=== PATIENT | female | born 1975 | race African-American/Black ===

== ENCOUNTER 2016-09-26 01:46 | Emergency (ER) | payer MEDICAID, OTHER ==
[~2016-09-26] VITALS: Ht 154.9 cm; Wt 76.0 kg
[~2016-09-26 01:46] MED LIST: ASPI81TA82 PO; IBUP-238 PO
[2016-09-26 01:51] VITALS: BP 148/90; PULSE 70; RESP 16; TEMP 97.7; O2SAT 100
--- NOTE | 2016-09-26 04:40 | PD ---
HPI Chief Complaint: Flank/Kidney Pain Time Seen by Provider: 04:06 Travel History International Travel<30 days: No Contact w/Intl Traveler<30days: No Traveled to known affect area: No History of Present Illness HPI 41-year-old female came to the emergency room with history of right flank pain for past 1 week. Patient says that the pain is not going away and hence she came in to get checked. She has her period on right now. She says her urine smells funny as well. Vital signs were stable. No history of trauma. PFSH Past Medical History Narrative Medical List of her past medical, surgical, social and family history was reviewed from the nursing note. Arthritis: No Asthma: No Autoimmune Disease: No Blood Disorders: No Heart Rhythm Problems: Yes ("PALPITATIONS") Cancer: No Cardiovascular Problems: Yes (HTN, CHF) High Cholesterol: Yes Chemotherapy: No Chest Pain: Yes Congestive Heart Failure: Yes COPD: No Cerebrovascular Accident: No Diminished Hearing: No Endocrine: No Glaucoma: No Genitourinary: No Headaches: No Hepatitis: No Hypertension: Yes Immune Disorder: No Kidney Stones: No Musculoskeletal: No Neurologic: No Psychiatric: No Reproductive: No Respiratory: No Migraines: Yes Myocardial Infarction: No Radiation Therapy: No Seizures: No Sickle Cell Disease: No Sleep Apnea: No Ulcer: Yes ?: Not LMP: CURRENT : 4 Para: 3 : 1 Tubal Ligation: Yes Past Surgical History Abdominal Surgery: No AICD: No Arteriovenous Shunt: No Cardiac Surgery: No Section: Yes (X 3) Ear Surgery: No Endocrine Surgery: No Eye Surgery: No Genitourinary Surgery: No Gynecologic Surgery: Yes (C SECTIONS-TUBAL LIGATION) Insulin Pump: No Joint Replacement: No Oral Surgery: No Pacemaker: No Thoracic Surgery: No Other Surgery: Yes (3 C-SECTIONS) Family History Family Hypercholesterolemia: Yes Social History Alcohol Use: Yes (OCCASSIONAL WINE) Tobacco Use: Yes (BLACK AND MILDS) Substance Use: Yes (OCCASIONAL MARIJUANA) Allergies-Medications (Allergen,Severity, Reaction): Uncoded Allergies: steroids (Allergy, Mild, 09/26/16) Comments List of her allergies reviewed from the nursing note Reported Meds & Prescriptions Reported Meds & Active Scripts Active Tylenol (Acetaminophen) 325 Mg Tab 650 Mg PO Q6H PRN Narrative Medication List of her home medications reviewed from the nursing note. Review of Systems Except as stated in HPI: all other systems reviewed are Neg Physical Exam Narrative GENERAL: Awake, alert, moderate distress SKIN: Focused skin assessment warm/dry. HEAD: Atraumatic. Normocephalic. EYES: Pupils equal and round. No scleral icterus. No injection or drainage. ENT: No nasal bleeding or discharge. Mucous membranes pink and moist. NECK: Trachea midline. No JVD. CARDIOVASCULAR: Regular rate and rhythm. No murmur appreciated. RESPIRATORY: No accessory muscle use. Clear to auscultation. Breath sounds equal bilaterally. GASTROINTESTINAL: Abdomen soft, non-tender, nondistended. Hepatic and splenic margins not palpable. MUSCULOSKELETAL: No obvious deformities. No clubbing. No cyanosis. No edema. NEUROLOGICAL: Awake and alert. No obvious cranial nerve deficits. Motor grossly within normal limits. Normal speech. PSYCHIATRIC: Appropriate mood and affect; insight and judgment normal. Data Data Last Documented VS Vital Signs Date Time Temp Pulse Resp B/P Pulse Ox O2 Delivery O2 Flow Rate FiO2 09/26/16 10:42 84 16 128/76 99 Orders Complete Blood Count With Diff (09/26/16 04:57) Comprehensive Metabolic Panel (09/26/16 04:57) Urinalysis - C+S If Indicated (09/26/16 04:57) Ct Abd/Pel W/O Iv Contrast (09/26/16 04:57) Ecg Monitoring (09/26/16 04:57) Iv Access Insert/Monitor (09/26/16 04:57) Morphine Inj (Morphine Inj) (09/26/16 05:00) Sodium Chloride 0.9% Flush (Ns Flush) (09/26/16 05:00) Sodium Chlor 0.9% 1000 Ml Inj (Ns 1000 M (09/26/16 04:57) Ondansetron Inj (Zofran Inj) (09/26/16 05:00) Ketorolac Inj (Toradol Inj) (09/26/16 05:00) Ondansetron Inj (Zofran Inj) (09/26/16 05:45) Calcium Carbonate Chew (Tums Chew) (09/26/16 07:15) Us Pelvis Comp W Transvaginal (09/26/16 ) Labs Laboratory Tests Test 09/26/16 09/26/16 09/26/16 05:15 05:20 05:57 Urine Color LIGHT-YELLOW Urine Turbidity CLEAR Urine pH 5.5 Urine Specific [place] 1.018 Urine Protein NEG mg/dL Urine Glucose (UA) NEG mg/dL Urine Ketones NEG mg/dL Urine Occult Blood MOD Urine Nitrite NEG Urine Bilirubin NEG Urine Urobilinogen LESS THAN 2.0 MG/DL Urine Leukocyte Esterase NEG Urine RBC 58 /hpf Urine WBC 1 /hpf Microscopic Urinalysis Comment CULT NOT INDICATED White Blood Count 8.1 TH/MM3 Red Blood Count 3.84 MIL/MM3 Hemoglobin 11.2 GM/DL Hematocrit 32.8 % Mean Corpuscular Volume 85.5 FL Mean Corpuscular Hemoglobin 29.2 PG Mean Corpuscular Hemoglobin 34.2 % Concent Red Cell Distribution Width 16.3 % Platelet Count 482 TH/MM3 Mean Platelet Volume 8.6 FL Neutrophils (%) (Auto) 52.7 % Lymphocytes (%) (Auto) 37.6 % Monocytes (%) (Auto) 6.4 % Eosinophils (%) (Auto) 2.2 % Basophils (%) (Auto) 1.1 % Neutrophils # (Auto) 4.3 TH/MM3 Lymphocytes # (Auto) 3.0 TH/MM3 Monocytes # (Auto) 0.5 TH/MM3 Eosinophils # (Auto) 0.2 TH/MM3 Basophils # (Auto) 0.1 TH/MM3 CBC Comment DIFF FINAL Differential Comment Sodium Level 140 MEQ/L Potassium Level 4.0 MEQ/L Chloride Level 108 MEQ/L Carbon Dioxide Level 25.4 MEQ/L Anion Gap 7 MEQ/L Blood Urea Nitrogen 13 MG/DL Creatinine 0.69 MG/DL Estimat Glomerular Filtration 112 ML/MIN Rate Random Glucose 87 MG/DL Calcium Level 7.7 MG/DL Total Bilirubin 0.2 MG/DL Aspartate Amino Transf 16 U/L (AST/SGOT) Alanine Aminotransferase 19 U/L (ALT/SGPT) Alkaline Phosphatase 57 U/L Total Protein 6.4 GM/DL Albumin 3.1 GM/DL [facility] Medical Decision Making Medical Screen Exam Complete: Yes Emergency Medical Condition: Yes Medical Record Reviewed: Yes Differential Diagnosis Renal colic, muscular skeletal pain Narrative Course 7:10 AM blood tests are within acceptable limit. CT scan shows a large fibroid and the radiologist has recommended an ultrasound. Ultrasound has been ordered. Case will be signed over to the oncoming ER physician. Patient was given pain medication. Calcium was slightly low. I'll order PO calcium. Procedures EKG Prior to Arrival: No Scripts Acetaminophen (Tylenol)325 Mg [id number] Mg PO Q6H PRN (PAIN SCALE 1 TO 4) #20 TAB Ref 0 Prov:Diandra Miller DO 09/26/16 Eunice Garcia MD Sep 26, 2016 04:40
[2016-09-26 04:44] VITALS: BP 138/68; PULSE 60; RESP 18; O2SAT 99
[2016-09-26] MEDS ORDERED: SODIUM CHLOR 0.9% 1000 ML INJ 1,000 ML IV ONE (04:57)
[2016-09-26] MEDS ORDERED: MORPHINE SULFATE 4 MG/ML INJ IV ONE (05:00)
[2016-09-26] MEDS ORDERED: ONDANSETRON HCL 4 MG/2 ML VIAL IM ONE (05:00)
[2016-09-26] MEDS ORDERED: SODIUM CHLORIDE 0.9% FLUSH 10 ML FLUSH IVF PRN (05:00)
[2016-09-26] MEDS ORDERED: KETOROLAC TROMETHAMINE 30 MG/ML (IVP) VIAL IV PUSH ONE (05:00)
[2016-09-26 05:40] LABS: AUTOMATED NEUTROPHIL # 4.3 TH/MM3 (1.8-7.7); BASOPHIL # 0.1 TH/MM3 (0-0.2); BASOPHIL % 1.1 % (0.0-2.0); EOSINOPHIL # 0.2 TH/MM3 (0-0.4); EOSINOPHIL % 2.2 % (0.0-4.0); HEMATOCRIT 32.8 % (35.0-46.0); HEMO FLAGS DIFF FINAL; LYMPH % 37.6 % (9.0-44.0); MEAN CELL VOLUME 85.5 FL (80.0-100.0); MEAN CORPUSCULAR HEMOGLOBIN 29.2 PG (27.0-34.0); MEAN CORPUSCULAR HGB CONC 34.2 % (32.0-36.0); MONO % 6.4 % (0.0-8.0); NEUT % 52.7 % (16.0-70.0); PLATELET COUNT 482 TH/MM3 (150-450); RED BLOOD COUNT 3.84 MIL/MM3 (4.00-5.30); RED CELL DISTRIBUTION WIDTH 16.3 % (11.6-17.2); WHITE BLOOD COUNT 8.1 TH/MM3 (4.0-11.0)
[2016-09-26 05:44] LABS: BLOOD, URINE MOD (NEG); COMMENT (UR) CULT NOT INDICATED; CULTURE IF INDICATED CULT NOT INDICATED; GLUCOSE,URINE NEG (NEG); KETONE, URINE NEG (NEG); NITRITE,URINE NEG (NEG); PH, URINE 5.5 (5.0-8.5); URINE COLOR LIGHT-YELLOW (YELLW/STRAW)
[2016-09-26] MEDS ORDERED: ONDANSETRON HCL 4 MG/2 ML VIAL IV PUSH ONE (05:45)
--- NOTE | 2016-09-26 06:14 | RADRPT ---
EXAM DATE/TIME: 09/26/2016 05:45 [facility] COMPARISON: No previous studies available for comparison. INDICATIONS : Flank pain. ORAL CONTRAST: No oral contrast ingested. RADIATION DOSE: 9.96 CTDIvol (mGy) MEDICAL HISTORY : Hypertension. SURGICAL HISTORY : section. Tubal ligation. ENCOUNTER: Initial ACUITY: 2 weeks PAIN SCALE: 8/10 LOCATION: Bilateral flank TECHNIQUE: Volumetric scanning of the abdomen and pelvis was performed. Using automated exposure control and ad justment of the mA and/or kV according to patient size, radiation dose was kept as low as reasonably achievable to obtain optimal diagnostic quality images. DICOM format image data is available electro nically for review and comparison. FINDINGS: LOWER LUNGS: The visualized lower lungs are clear. LIVER: Homogeneous density without lesion. There is no dilation of the biliary tree. No calcified gallston es. SPLEEN: Normal size without lesion. PANCREAS: Within normal limits. KIDNEYS: Normal in size and shape. There is no mass, stone, or hydronephrosis. ADRENAL GLANDS: Within normal limits. VASCULAR: There is no aortic aneurysm. BOWEL/MESENTERY: The stomach, small bowel, and colon demonstrate no acute abnormality. There is no free intraperitone al air or fluid. ABDOMINAL WALL: Within normal limits. RETROPERITONEUM: Small scattered lymph nodes. BLADDER: No wall thickening or mass. REPRODUCTIVE: Mass projecting from the uterus measuring 9.5 x 10.7 cm. INGUINAL: There is no lymphadenopathy or hernia. MUSCULOSKELETAL: Within normal limits for patient age. CONCLUSION: 1. Large mass projecting from the uterus could be related to a exophytic leiomyoma. Confirmation with pelvic sonogram recommended. 2. Small scattered retroperitoneal lymph nodes. 3. No acute inflammatory process. 4. No renal calculi or hydronephrosis. Jean Paul Shannon MD on September 26, 2016 at 6:10 Board Certified Radiologist. This report was verified electronically.
[2016-09-26 06:41] LABS: ANION GAP 7 MEQ/L (5-15); AST (GOT) 16 U/L (15-37); BICARBONATE 25.4 MEQ/L (21.0-32.0); BLOOD UREA NITROGEN 13 MG/DL (7-18); CHLORIDE 108 MEQ/L (98-107); GLOMERULAR FILTRATION RATE 112 ML/MIN (>89); SODIUM (NA) 140 MEQ/L (136-145)
[2016-09-26 06:42] LABS: ALT (GPT) 19 U/L (10-53)
[2016-09-26 06:44] LABS: ALKALINE PHOSPHATASE 57 U/L (45-117); TOTAL BILIRUBIN ADULT 0.2 MG/DL (0.2-1.0)
[2016-09-26] MEDS ORDERED: CALCIUM CARBONATE 500 MG CHEWABLE TAB CHEW ONE (07:15)
--- NOTE | 2016-09-26 08:41 | RADRPT ---
EXAM DATE/TIME: 09/26/2016 07:35 [facility] COMPARISON: CT ABDOMEN & PELVIS W/O CONTRAST, September 26, 2016, 5:45. INDICATIONS : Abnormal Cat Scan. Right flank pain. MEDICAL HISTORY : Congestive heart failure. Hypertension. Hypercholesterolemia. SURGICAL HISTORY : Tubal ligation. section. ENCOUNTER: Initial ACUITY: 1 day PAIN SCORE: 0/10 LOCATION: Bilateral pelvis MEASUREMENTS: TRANSABDOMINAL: UTERUS: 17.2 x 11.6 x 9.3 cm ENDOMETRIAL STRIPE: 5 mm RIGHT OVARY: Non visualized LEFT OVARY: Non visualized UTERUS: 14.9 x 10.4 x 10.5 cm ENDOMETRIAL STRIPE: 9 mm RIGHT OVARY: Non visualized LEFT OVARY: Non visualized FINDINGS: UTERUS: There is evidence of a diffusely enlarged uterus which is a bulky fibroid uterus. Multiple hypoechoic masses are seen throughout the uterus. There is a fibroid along the right fundus measuring 3.7 cm. T here is a fibroid along the left fundus measuring 5.0 cm. The endometrial cavity appears to be empty. RIGHT OVARY: Not visualized LEFT OVARY: Not visualized MISCELLANEOUS: No free fluid. CONCLUSION: Diffusely enlarged bulky fibroid uterus. This correlates with the recent prior CT scan of the abdomen and pelvis. Jhonathan Delarosa MD on September 26, 2016 at 8:36 Board Certified Radiologist. This report was verified electronically.
[2016-09-26] MEDS ORDERED: TYLE325T PO (10:14)
--- NOTE | 2016-09-26 10:14 | PD ---
Physical Exam Narrative Sign out from previous team to follow up US pelvis. 41yo F with back pain. CT a/p had showed a large mass from uterus that could be leiomyoma and recommend pelvic sonogram to confirm. Pelvic US showed diffusely enlarged bulky fibroid uterus. Pt instructed to follow up with INFORMATION SYSTEMS PROFESSOR as outpatient. Reevaluated at bedside and no pain currently, states she has been sleeping. Return precautions given. Data Data Last Documented VS Vital Signs Date Time Temp Pulse Resp B/P Pulse Ox O2 Delivery O2 Flow Rate FiO2 09/26/16 04:44 60 18 138/68 99 Room Air 09/26/16 01:51 97.7 Orders Complete Blood Count With Diff (09/26/16 04:57) Comprehensive Metabolic Panel (09/26/16 04:57) Urinalysis - C+S If Indicated (09/26/16 04:57) Ct Abd/Pel W/O Iv Contrast (09/26/16 04:57) Ecg Monitoring (09/26/16 04:57) Iv Access Insert/Monitor (09/26/16 04:57) Morphine Inj (Morphine Inj) (09/26/16 05:00) Sodium Chloride 0.9% Flush (Ns Flush) (09/26/16 05:00) Sodium Chlor 0.9% 1000 Ml Inj (Ns 1000 M (09/26/16 04:57) Ondansetron Inj (Zofran Inj) (09/26/16 05:00) Ketorolac Inj (Toradol Inj) (09/26/16 05:00) Ondansetron Inj (Zofran Inj) (09/26/16 05:45) Calcium Carbonate Chew (Tums Chew) (09/26/16 07:15) Us Pelvis Comp W Transvaginal (09/26/16 ) Labs Laboratory Tests Test 09/26/16 09/26/16 09/26/16 05:15 05:20 05:57 Urine Color LIGHT-YELLOW Urine Turbidity CLEAR Urine pH 5.5 Urine Specific [place] 1.018 Urine Protein NEG mg/dL Urine Glucose (UA) NEG mg/dL Urine Ketones NEG mg/dL Urine Occult Blood MOD Urine Nitrite NEG Urine Bilirubin NEG Urine Urobilinogen LESS THAN 2.0 MG/DL Urine Leukocyte Esterase NEG Urine RBC 58 /hpf Urine WBC 1 /hpf Microscopic Urinalysis Comment CULT NOT INDICATED White Blood Count 8.1 TH/MM3 Red Blood Count 3.84 MIL/MM3 Hemoglobin 11.2 GM/DL Hematocrit 32.8 % Mean Corpuscular Volume 85.5 FL Mean Corpuscular Hemoglobin 29.2 PG Mean Corpuscular Hemoglobin 34.2 % Concent Red Cell Distribution Width 16.3 % Platelet Count 482 TH/MM3 Mean Platelet Volume 8.6 FL Neutrophils (%) (Auto) 52.7 % Lymphocytes (%) (Auto) 37.6 % Monocytes (%) (Auto) 6.4 % Eosinophils (%) (Auto) 2.2 % Basophils (%) (Auto) 1.1 % Neutrophils # (Auto) 4.3 TH/MM3 Lymphocytes # (Auto) 3.0 TH/MM3 Monocytes # (Auto) 0.5 TH/MM3 Eosinophils # (Auto) 0.2 TH/MM3 Basophils # (Auto) 0.1 TH/MM3 CBC Comment DIFF FINAL Differential Comment Sodium Level 140 MEQ/L Potassium Level 4.0 MEQ/L Chloride Level 108 MEQ/L Carbon Dioxide Level 25.4 MEQ/L Anion Gap 7 MEQ/L Blood Urea Nitrogen 13 MG/DL Creatinine 0.69 MG/DL Estimat Glomerular Filtration 112 ML/MIN Rate Random Glucose 87 MG/DL Calcium Level 7.7 MG/DL Total Bilirubin 0.2 MG/DL Aspartate Amino Transf 16 U/L (AST/SGOT) Alanine Aminotransferase 19 U/L (ALT/SGPT) Alkaline Phosphatase 57 U/L Total Protein 6.4 GM/DL Albumin 3.1 GM/DL [facility] Supervised Visit with JUSTIN: No Diagnosis Primary Impression: Uterine fibroid Qualified Code: D25.9 - Uterine leiomyoma, unspecified location Patient Instructions: General Instructions Departure Forms: Tests/Procedures Additional Instruction: Please follow up with your INFORMATION SYSTEMS PROFESSOR regarding the fibroid found in the uterus. Return to the ED if symptoms worsen. Med/Other Pt SpecificInfo: Prescription(s) given Scripts Acetaminophen (Tylenol)325 Mg [id number] Mg PO Q6H PRN (PAIN SCALE 1 TO 4) #20 TAB Ref 0 Prov:Diandra Miller 09/26/16 Disposition: 01 DISCHARGE HOME Condition: Stable Diandra Miller DO Sep 26, 2016 10:14
[2016-09-26 10:42] VITALS: BP 128/76
== END 2016-09-26 10:49 | disposition home or self-care (01) ==
LOC: NEPC 01:46
DX: D25.9 Leiomyoma of uterus, unspecified (principal); I10 Essential (primary) hypertension; I50.9 Heart failure, unspecified; E78.00 Pure hypercholesterolemia, unspecified; Z72.0 Tobacco use
CPT/HCPCS: 74176; 76830; 76856; 80053; 81001; 85025; 96361; 96374; 96375; 99285; J1885; J2270; J2405; J7030